=== PATIENT | female | born 1990 | race Caucasian/White ===

== ENCOUNTER → 2018-04-06 08:24 | Outpatient (CLI) | payer BC ==
[2018-04-06 08:59] LABS: ALBUMIN 3.8 g/dL (3.4-5.0); BILIRUBIN - DIRECT 0.11 mg/dL (0.00-0.30); BILIRUBIN - INDIRECT 0.29 mg/dL (0.00-1.00); BILIRUBIN - TOTAL 0.4 mg/dL (0.2-1.3); PROTEIN - SERUM 7.5 g/dL (6.4-8.2)
== END | disposition home or self-care (01) ==
LOC: D.LAB 08:24
PROVIDERS: Internal Medicine Gastroenterology
DX: R79.89 Other specified abnormal findings of blood chemistry (principal)

== ENCOUNTER → 2018-04-13 08:19 | Outpatient (CLI) | payer BC ==
[2018-04-14 13:19] LABS: HEPATITIS C ANTIBODY <0.1 (0.0-0.9)
== END | disposition home or self-care (01) ==
LOC: D.LAB 08:19
PROVIDERS: Internal Medicine Gastroenterology
DX: R79.89 Other specified abnormal findings of blood chemistry (principal)

== ENCOUNTER → 2018-04-16 09:06 | Outpatient (CLI) | payer BC ==
[2018-04-16 09:57] LABS: BASOPHILS 0.4 % (0-2); EOSINOPHILS 2.8 % (0-7); HEMATOCRIT 38.6 % (36.0-48.0); HEMOGLOBIN 13.8 g/dL (12-16); LYMPHOCYTES 41.2 % (15-50); MCH 30.2 pg (26.0-34.0); MCHC 35.8 g/dL (31.0-37.0); MCV 84.5 fL (80.0-100.0); MEAN PLATELET VOLUME 9.7 fL (7.4-10.4); MONOCYTES 9.4 % (2-11); NEUTROPHILS 46.2 % (40-80); PLATELET COUNT 210 10x3/uL (130-400); RBC 4.57 10x6/uL (4.00-5.40); RDW 12.1 % (11.5-14.5); WBC 5.4 10x3/uL (4.8-10.8)
[2018-04-16 10:11] LABS: APTT 28.8 SECONDS (22.8-39.4); INR 0.99 (0.85-1.17); PROTIME 12.7 SECONDS (11.6-15.0)
[2018-04-16 10:33] LABS: ALBUMIN 4.1 g/dL (3.4-5.0); ALKALINE PHOSPHATASE 62 U/L (46-116); ALT (SGPT) 59 U/L (10-68); BILIRUBIN - INDIRECT 0.41 mg/dL (0.00-1.00); BILIRUBIN - TOTAL 0.51 mg/dL (0.2-1.3); CALC OSMOLALITY 275 mosm/kg (275-300); CALCIUM 8.9 mg/dL (8.5-10.1); CARBON DIOXIDE 27.1 mmol/L (21.0-32.0); CHLORIDE - SERUM 103 mmol/L (98-107); CREATININE - SERUM 0.6 mg/dL (0.6-1.3); FERRITIN 89 ng/mL (3-244); GAMMA GT 60 U/L (5-85); GLUCOSE 96 mg/dL (74-106); POTASSIUM - SERUM 4.3 mmol/L (3.5-5.1); SODIUM 138 mmol/L (136-145); UREA NITROGEN 13 mg/dL (7-18); eGFR NON AFRICAN AMERICAN > 90 mL/min (90-120)
[2018-04-16 11:02] LABS: % SATURATION 20 % (15-55); IRON 75 ug/dl (35-150); TOTAL IRON BIND CAPACITY 362 ug/dl (260-445); UNSAT IRON BIND CAPACITY 287 ug/dl (150-375)
[2018-04-17 07:19] LABS: ALPHA FETOPROTEIN -(TUMOR MRK) 3.5 ng/mL (0.0-8.3)
[2018-04-17 08:17] LABS: HAPTOGLOBIN 139 mg/dL (34-200)
[2018-04-17 09:14] LABS: FOLATE (FOLIC ACID) - SERUM 17.8 ng/mL (>3.0)
[2018-04-18 12:07] LABS: MITOCHONDRIAL ANTIBODY 7.3 Units (0.0-20.0); SMOOTH MUSCLE ABS (ACTIN) 14 Units (0-19)
[2018-04-19 10:12] LABS: ANA REFLEX - DIRECT Negative (Negative)
== END | disposition home or self-care (01) ==
LOC: D.LAB 09:06
PROVIDERS: Internal Medicine Gastroenterology
DX: R79.89 Other specified abnormal findings of blood chemistry (principal)

== ENCOUNTER → 2018-08-04 09:52 | Outpatient (CLI) | payer BC ==
[2018-08-11 03:11] LABS: OVA + PARASITE EXAM Final report (())
== END | disposition home or self-care (01) ==
LOC: D.LAB 08:15
PROVIDERS: Internal Medicine Gastroenterology
DX: R19.5 Other fecal abnormalities (principal); R10.9 Unspecified abdominal pain